=== PATIENT | female | born 1985 | race African-American/Black ===

== ENCOUNTER 2019-07-30 13:55 | Emergency (ER) | payer BC ==
[~2019-07-30] VITALS: Ht 165.1 cm; Wt 90.0 kg
[2019-07-30 15:43] VITALS: BP 141/89
[2019-07-30] MEDS ORDERED: OXYCODONE HCL/ACETAMINOPHEN 5/325MG TABLET PO ONE (15:45)
== END 2019-07-30 15:50 | disposition home or self-care (01) ==
LOC: EDBD 13:55 → ER 14:50
DX: Z76.0 Encounter for issue of repeat prescription (principal); F12.10 Cannabis abuse, uncomplicated; Z98.890 Other specified postprocedural states
CPT/HCPCS: 81025; 99282